=== PATIENT | male | born 1990 | race Caucasian/White ===

== ENCOUNTER 2020-03-13 21:48 | Emergency (ER) | payer MEDICAID, SELFPAY ==
[2020-03-13 21:50] VITALS: PULSE 83; RESP 16; TEMP 36.9; O2SAT 97; BMI 30.4
--- NOTE | 2020-03-13 22:10 | ED.VIS.GEN ---
History of Present Illness Chief Complaint: Abd Pain Informant: Patient Onset: Days - 3 days Context: Gradual Onset Current Severity: Mild Maximum Severity: Moderate Narrative: Patient presents with 3 days of nausea and vomiting with abdominal pain. He points across his lower abdomen and states that shoots up into the epigastrium region. He does report having some blood in his vomitus recently. He states last evening after vomiting he felt very warm, but is unsure if he truly had a fever. Patient has had prior appendectomy. - Past Medical History (1) Anxiety Status: Chronic Past Medical History - Allergies and Home Meds Allergies/Adverse Reactions: Allergies cephalexin [From Keflex] Allergy (Verified 03/13/20 21:55) Anaphylaxis Penicillins Allergy (Verified 03/13/20 21:55) Anaphylaxis Primary Care Physician: [facility] Doctor,Out of [NON-STAFF] - Surgical History: appendectomy Smoking Status: Current some day smoker Review of Systems General: Denies: Chills, Fever Eyes: Denies: Visual changes - bilaterally ENT: Denies: Bilateral ear pain Cardiovascular: Denies: Chest pain Respiratory: Denies: Dyspnea, Cough Gastrointestinal: Reports: Abdominal pain, Nausea, Vomiting. Denies: Diarrhea Genitourinary: Denies: Dysuria Musculoskeletal: Denies: Swelling, Extremity Pain Skin: Denies: Rash Neurological: Denies: Headache Hematologic: Denies: Easy bruising, Easy bleeding Allergy: Denies: Uticaria Physical Exam Vital Signs/Narrative: Vital Signs Temp Pulse Resp Pulse Ox 03/13/20 21:50 98.5 F 83 16 97 Inital Vital Signs reviewed: Yes General: Well nourished, Well developed Head: Normocephalic ENT: Moist mucous membranes Neck: Supple Cardiovascular: Regular rate, Regular rhythm Respiratory: No distress, CTA bilaterally Abdomen: Soft, Tender - Mild epigastric tenderness., Hypoactive bowel sounds. Negative for: Guarding, Rebound tenderness Extremities: Nontender Skin: Normal color Neurological: Alert, Oriented x3 Psychological: Normal affect Diagnostic/Tx/Re-eval Laboratory Results 03/13/20 03/13/20 03/13/20 21:55 21:55 21:55 WBC 7.8 RBC 4.42 L Hgb 13.6 Hct 38.9 L MCV 88.0 MCH 30.8 MCHC 35.0 RDW Std Deviation 39.2 RDW Coeff of Lyubov 12.0 Plt Count 191 MPV 11.1 Immature Gran % (Auto) 0.100 Neut % (Auto) 64.1 Lymph % (Auto) 26.1 Gilliam % (Auto) 9.1 Eos % (Auto) 0.5 Baso % (Auto) 0.1 Absolute Neuts (auto) 5.0 Absolute Lymphs (auto) 2.03 Nucleated RBC % 0 PT 12.3 INR 1.0 APTT 25.6 Sodium 139 Potassium 3.0 L Chloride 103 Carbon Dioxide 25.0 Anion Gap 11 BUN 11 Creatinine 1.09 Estim Creat Clear Calc 101.39 Est GFR (MDRD) Af Amer 101 Est GFR (MDRD) Non-Af 83 BUN/Creatinine Ratio 10.1 Glucose 108 H Calcium 8.6 Total Bilirubin 0.40 Direct Bilirubin < 0.05 AST 22 ALT 30 Alkaline Phosphatase 49 Total Protein 7.7 Albumin 3.8 Globulin 3.9 Lipase 175 - Medical Decision Making Patient was given IV fluids, Zofran, Bentyl, and Protonix. On repeat evaluation he is resting comfortably. He states he was seen for similar complaints at [facility] and they thought he may have an ulcer. He has not been taking antacids or followed up for EGD. He will be given prescriptions for Zofran, Prilosec, and Bentyl. His potassium tonight is low at 3.0. This will be replaced orally and prescription for additional replacement at home will also be provided. He will be given referral to surgery for follow-up and possible EGD. ED Disposition - Plan for ED Patient: Disposition: Home or Assisted Living Diagnosis: Vomiting, Gastritis Instructions: ED Vomiting (Adult), ED PEPTIC ULCER vs GASTRITIS Prescriptions: Dicyclomine HCl [Bentyl] 20 mg PO TIDAC #20 capsule Potassium Chloride [K-Tab ER] 40 meq PO DAILY #10 tablet.er Omeprazole [Prilosec] 20 mg PO DAILY #30 capsule Ondansetron [Zofran Odt] 4 mg PO Q8H PRN PRN #20 tablet PRN Reason: Nausea Referrals: Minh Mccray MD [STAFF PHYSICIAN] - 10-14 Days if not better
[2020-03-13] MEDS: Dicyclomine 20 MG/2 ML Vial IM (22:13)
[2020-03-13] MEDS: Ondansetron 4 MG/2 ML Vial IV (22:13)
[2020-03-13] MEDS: 0.9% Normal Saline 1,000 ML 1000 ML IV (22:13)
[2020-03-13 22:18] LABS: Absolute Lymphocyte Count 2.03 X10^3/uL (0.83-4.51); Basophil# 0.01 X10^3/uL; Basophil% 0.1 % (0-1); Eosinophil# 0.04 X10^3/uL; Eosinophils% 0.5 % (0-5); Hematocrit 38.9 % (40-54); Hemoglobin 13.6 g/dL (13.0-16.5); Lymphocyte # 2.03 X10^3/ul (4.0); Lymphocyte % 26.1 % (19-41); Mean Corpuscular Hgb 30.8 pg (27.0-32.0); Mean Platelet Vol. 11.1 fl (6.2-12.0); Monocyte# 0.71 X10^3/uL; Monocyte% 9.1 % (0-10); NRBC Flagged by Analyzer 0 % (0-5); Neutrophil # 4.97 X10^3/uL (2.7-7.7); Neutrophil % 64.1 % (47-70); Platelet Count 191 K/mm3 (150-450); RBC Distribution Width SD 39.2 fl (35.1-43.9); Red Blood Count 4.42 M/mm3 (4.6-6.2); White Blood Count 7.8 K/mm3 (4.4-11.0)
[2020-03-13 22:24] LABS: Prothrombin Time (Protime)PT. 12.3 SECONDS (11.7-14.9)
[2020-03-13 22:25] LABS: Partial Thromboplast Time 25.6 Seconds (24.1-36.2)
[2020-03-13 22:42] LABS: AST(SGOT) 22 U/L (15-37); Alanine Aminotransfer ALT/SGPT 30 U/L (16-61); Albumin, Serum 3.8 g/dL (3.2-5.0); Alkaline Phosphatase 49 U/L (45-117); Anion Gap 11 (5-15); BUN 11 mg/dL (7-18); BUN/Creat Ratio 10.1 RATIO (10-20); Bilirubin, Direct < 0.05 mg/dL (0.00-0.30); Calcium,Total 8.6 mg/dL (8.5-10.1); Chloride 103 mmol/L (98-107); Creatinine, Serum 1.09 mg/dL (0.70-1.30); EST Glomerular Filtration Rate 83 mL/min (>60); Est Glom Filt Rate - Afr Amer 101 mL/min (>60); Estimated Creatinine Clearance 101.39 ml/min; Globulin 3.9 g/dL (2.2-4.2); Glucose 108 mg/dL (74-106); Lipase 175 U/L (73-393); Protein, Total 7.7 g/dL (6.4-8.2); Sodium Level 139 mmol/L (136-145)
[2020-03-13 23:26] VITALS: BP 116/70; PULSE 71; RESP 16; O2SAT 99
== END 2020-03-13 23:26 | disposition home or self-care (01) ==
PROVIDERS: Emergency Provider Emergency Medicine
DX: K29.70 Gastritis, unspecified, without bleeding (principal); F41.9 Anxiety disorder, unspecified; Z79.899 Other long term (current) drug therapy; F17.200 Nicotine dependence, unspecified, uncomplicated
CPT/HCPCS: 80048; 80076; 83690; 85025; 85610; 85730; 96361; 96365; 96372; 96374; 99285; A4216; J2405

== ENCOUNTER 2020-03-14 23:21 | Emergency (ER) | payer MEDICAID, SELFPAY ==
[2020-03-13 21:50] VITALS: BMI 30.4
[2020-03-14 23:22] VITALS: BP 107/66; PULSE 85; RESP 16; TEMP 36.9; O2SAT 100; BMI 28.0
[2020-03-15] MEDS: Acetaminophen 500 MG Tablet 1000 MG PO (00:07)
--- NOTE | 2020-03-15 00:10 | ED.DCSUM_ITS ---
- ER Visit Summary Date of Service: 03/15/20 Chief Complaint: Left leg pain History of Present Illness: The patient is a 29 M who presents with left leg pain that began today. Patient states it is gradually gotten worse throughout the day today. Patient was seen here yesterday was given an injection of Bentyl in his left thigh. Patient states his pain is burning. Patient states it is worse with any movement. Patient states nothing seems to help it. Patient states she is having difficulty walking due to the pain. Patient admits to some tingling in his left foot. Patient also admits to a cough but denies any fevers or chills. Physical Examination: Vital signs are stable. Patient is afebrile. Patient is in no acute distress. Oral mucosa is pink and moist. Neck is supple. Trachea is midline. There is no JVD. Heart was regular rate and rhythm. Lungs are clear and equal bilaterally. Abdomen is soft. Bowel sounds are normal. There is no tenderness. Cranial nerves II through XII are intact. There are no focal motor or sensory deficits. Patient was moving his foot while I was obtaining his history. However when I asked him to lift his toes he stated he could not. Patient did not have any sensory deficits. Skin is warm dry. There is some very mild erythema around the injection site. There is no induration or warmth. There is tenderness over this area. Test Results: CBC and basic metabolic profile were obtained. Potassium was slightly low at 3.3. The remaining labs were within normal limits. Emergency Department Course and Treatment: Patient was given a dose of Tylenol here. Patient was also given a dose of Bactrim and potassium. Patient was given a prescription for Bactrim to cover for possible early cellulitis of his left thigh. Patient was instructed to continue Tylenol as needed for pain. Patient was instructed to follow-up with his primary care physician in 5 to 7 days. Patient understood and was agreeable with the plan. All questions were answered. Disposition: Discharge home Impression: 1. Left thigh pain 2. Possible early cellulitis This note was generated with [employer] Media[employer] software. It may contain incorrect words, spelling, and punctuation that were not noted in review of the chart prior to signing ED Disposition - Plan for ED Patient: Disposition: Home or Assisted Living Diagnosis: Pain of left lateral upper thigh, Cellulitis of left thigh Instructions: ED Cellulitis Prescriptions: Virginie/Tmp Ds [Bactrim Ds] 1 tab PO BID #14 tab Prescription Printed Referrals: Care Physician,No Primary [Primary Care Provider] - 3-5 Days
[2020-03-15 00:24] LABS: Absolute Lymphocyte Count 2.11 X10^3/uL (0.83-4.51); Absolute Neutrophil Count 3.5 X10^3/uL (2.0-7.7); Basophil# 0.03 X10^3/uL; Basophil% 0.5 % (0-1); Eosinophil# 0.13 X10^3/uL; Hematocrit 36.5 % (40-54); Hemoglobin 12.4 g/dL (13.0-16.5); Lymphocyte # 2.11 X10^3/ul (4.0); Lymphocyte % 32.8 % (19-41); Mean Corpuscular Hgb 30.1 pg (27.0-32.0); Mean Corpuscular Volume 88.6 fL (80-94); Monocyte# 0.65 X10^3/uL; Monocyte% 10.1 % (0-10); NRBC Flagged by Analyzer 0 % (0-5); Neutrophil # 3.49 X10^3/uL (2.7-7.7); Neutrophil % 54.3 % (47-70); Platelet Count 164 K/mm3 (150-450); RBC Distribution Width CV 12.1 % (11.6-14.6); RBC Distribution Width SD 39.7 fl (35.1-43.9); Red Blood Count 4.12 M/mm3 (4.6-6.2); White Blood Count 6.4 K/mm3 (4.4-11.0)
[2020-03-15 00:33] LABS: Anion Gap 6 (5-15); BUN 8 mg/dL (7-18); BUN/Creat Ratio 7.2 RATIO (10-20); Calcium,Total 7.9 mg/dL (8.5-10.1); Chloride 109 mmol/L (98-107); Creatinine, Serum 1.11 mg/dL (0.70-1.30); EST Glomerular Filtration Rate 82 mL/min (>60); Est Glom Filt Rate - Afr Amer 99 mL/min (>60); Estimated Creatinine Clearance 105.84 ml/min; Glucose 108 mg/dL (74-106); Potassium 3.3 mmol/L (3.5-5.1); Sodium Level 141 mmol/L (136-145)
[2020-03-15] MEDS: Smz/Tmp Ds Tablet 1 TABLET PO (00:57)
[2020-03-15 00:58] VITALS: BP 103/73; PULSE 81; RESP 15; O2SAT 100
== END 2020-03-15 01:41 | disposition home or self-care (01) ==
PROVIDERS: Emergency Provider Emergency Medicine
DX: L03.116 Cellulitis of left lower limb (principal); R05 Cough; F41.9 Anxiety disorder, unspecified; Z79.899 Other long term (current) drug therapy; Z72.0 Tobacco use
CPT/HCPCS: 80048; 85025; 99285; A4216

== ENCOUNTER 2020-04-15 22:32 | Emergency (ER) | payer OTHER, SELFPAY ==
[2020-04-15 22:33] VITALS: BP 112/64; PULSE 69; RESP 16; TEMP 36.6; O2SAT 98; BMI 27.8
--- NOTE | 2020-04-15 23:30 | ED.DCSUM_ITS ---
- ER Visit Summary Date of Service: 04/15/20 Chief Complaint: Right shoulder injury History of Present Illness: The patient is a 29 M who presents with right shoulder injury that occurred today. Patient states he was setting a truss when it fell. Patient states it fell onto him and pushed him to the ground. Patient states he landed on his right shoulder. Patient states that he trusted hit him in the head and he had a brief loss of consciousness. Patient admits to some intermittent paresthesias in his right arm. Patient thinks it was due to the way he was sitting. Patient denies any weakness. Patient states the pain is worse with any movement. Physical Examination: Vital signs are stable. Patient is afebrile. Patient is in no acute distress. Cranial nerves II through XII are intact. Strength is 5/5 bilateral in the upper and lower extremities. There are no sensory deficits noted. There is tenderness over the right shoulder and distal clavicle. Range of motion was limited in all motions of the right shoulder secondary to pain. There is no obvious deformity noted. There is no tenderness over the upper chest. Test Results: X-rays of the right shoulder were obtained. There are 2 views. On my interpretation, there is no acute fracture or dislocation. There is no soft tissue swelling. Radiologist also interpreted the x-rays and agrees. Emergency Department Course and Treatment: Patient was instructed to use ice to the area. Patient was instructed to use ibuprofen as needed for pain. Patient was instructed to follow-up with his primary care physician in 5 to 7 days. Patient was instructed to do range of motion exercises. Patient understood and was agreeable with the plan. All questions were answered. Disposition: Discharge home Impression: Right shoulder sprain This note was generated with Exch[employer] dictation software. It may contain incorrect words, spelling, and punctuation that were not noted in review of the chart prior to signing ED Disposition - Plan for ED Patient: Disposition: Home or Assisted Living Diagnosis: Sprain of right shoulder Instructions: ED Shoulder Sprain Referrals: James Haas MD [STAFF PHYSICIAN] - 5-7 Days
--- NOTE | 2020-04-15 23:45 | RAD_ITS ---
STUDY: X-RAY - RIGHT SHOULDER REASON FOR EXAM: Male, 29 years old. PT ARRIVES TO ED WITH PAIN IN RIGHT SHOULDER RELATED TO A TRUSS FALLING ON HIM AT WORK TECHNIQUE: 2 view(s) of the shoulder. COMPARISON: None. FINDINGS: Normal glenohumeral articulation. Normal acromioclavicular joint. Normal acromion. Normal humeral head and visualized proximal humerus. Subcutaneous infiltration along the distal clavicle and acromion on. There is no radiopaque foreign body. Normal visualized pulmonary apex. RAD/Shoulder min 2 Views IMPRESSION: Soft tissue injury. There is no acute displaced fracture or dislocation. Electronically Signed: Dari Deng MD at 0:13 EST , Service support ,
--- NOTE | 2020-04-15 23:48 | ED.RN ---
pt asked for phone number to supervisor assembly room to inquire about urine drug screen. individual was called on patient behalf. individual stated i know nothing about it. pt asked if he had another number call and stated no. drug screen held at this time. john javed rn
[2020-04-16 00:27] VITALS: PULSE 76; RESP 16; O2SAT 98
== END 2020-04-16 00:27 | disposition home or self-care (01) ==
PROVIDERS: Emergency Provider Emergency Medicine
DX: S43.401A Unspecified sprain of right shoulder joint, initial encounter (principal); W20.8XXA Other cause of strike by thrown, projected or falling object, initial encounter; Y93.9 Activity, unspecified; Y92.9 Unspecified place or not applicable; F41.9 Anxiety disorder, unspecified; Z79.899 Other long term (current) drug therapy
CPT/HCPCS: 73030; 99283

== ENCOUNTER 2020-06-08 17:39 | Emergency (ER) | payer OTHER, SELFPAY ==
[2020-06-08 17:40] VITALS: BP 147/89; PULSE 100; RESP 19; TEMP 36.6; O2SAT 100; BMI 27.0
--- NOTE | 2020-06-08 18:06 | US_ITS ---
STUDY: ABDOMINAL ULTRASOUND - RIGHT UPPER QUADRANT REASON FOR VISIT: Male, 30 years old PAIN-EPIGASTRIC TECHNIQUE: Ultrasound evaluation of the right upper quadrant was performed with real-time and static bailey-scale imaging. TECHNICAL QUALITY: Adequate. COMPARISON: None. FINDINGS: Liver: The liver measures 15.6 cm. There is normal echogenicity of the liver. The bile ducts are within normal limits. There is hepatic color flow. The direction of portal flow is hepatopetal. There is no demonstrated mass lesion. Gallbladder: Normal distended gallbladder. The gallbladder wall measures 2 mm. There is a negative sonographic Lopez''s sign. There is no pericholecystic fluid. There are no gallstones. Common Bile Duct (C.B.D.): The common bile duct measures 2 mm. Pancreas: Normal size of the head, body and tail of the pancreas. There is normal echogenicity of the pancreas. There is no demonstrated pancreatic mass or cyst. Right Kidney: Normal size of the right kidney. The right kidney measures 10.6 cm. Normal renal cortex. The right cortex measures 1.7 cm. There is no demonstrated renal mass or cyst. There is no right hydronephrosis. US/Gallbladder IMPRESSION: Normal right upper quadrant ultrasound examination. Electronically Signed: Adam Dominique MD at 19:07 EDT , Service support ,
--- NOTE | 2020-06-08 18:07 | EKG12_ITS ---
Test Reason : CP Blood Pressure : / mmHG Vent. Rate : 088 BPM Atrial Rate : 088 BPM P-R Int : 170 ms QRS Dur : 100 ms QT Int : 382 ms P-R-T Axes : 031 027 035 degrees QTc Int : 462 ms Normal sinus rhythm Normal ECG Confirmed by TRUNG HUYNH, MADAN ([id number]), newspaper copy editor JAGUAR SCHWARZ ([id number]) on 06/09/2020 1:55:22 PM Referred By: BB Confirmed By:MADAN NINO MD
--- NOTE | 2020-06-08 18:13 | ED.DCSUM_ITS ---
History of Present Illness Chief Complaint: Abd Pain Informant: Patient - Abdominal Pain/Flank Pain Onset: Weeks Context: Sudden Onset - Chest after swallowing most foods and drinks except water which does not bother him much Timing: Intermittent, Lasts - 5 or 6 minutes before it dissipates/resolves Quality: Dull Location: Epigastric Current Severity: Gone Maximum Severity: Severe Worsened by: Food Relieved by: Nothing - Has not tried any medications - Nausea/Vomiting/Emesis GI Symptom: Negative for: Nausea, Vomiting - Diarrhea/Melena/Hematochezia GI Symptom: Negative for: Diarrhea, Melena, Hematochezia Associated Symptoms: Negative for: Dysuria, Frequency, Hematuria, Urgency Narrative: Patient states he has been having this abdominal pain that is fairly intense right after he eats, it is midepigastric and radiates out to both sides maybe a little to his back before it resolves after 5 or 6 minutes. It is recurrent, after eating anything including just crackers. With drinking soda like Coca- Cola, it is also intense. With drinking water he has very mild discomfort only. No nausea or vomiting with any of this. He felt hot with it and uncomfortable but no definite fevers or chills when he is not having the pain. No melena or bright red blood per rectum. States he was told by a doctor he may have a stomach ulcer sometime around 6 months ago when he was having some minor hematemesis and was placed on an unknown medication, and he now is on once daily Pepcid since then. He also takes medications for anxiety. He had an append ectomy followed by laparoscopies because he thinks it ruptured and he needed several surgeries as a result. He does not think he had any other parts removed during the surgeries, and they were not recent. He is otherwise healthy. - Past Medical History (1) Anxiety Status: Chronic Past Medical History - Allergies and Home Meds Allergies/Adverse Reactions: Allergies cephalexin [From Keflex] Allergy (Verified 06/08/20 17:40) Anaphylaxis Penicillins Allergy (Verified 06/08/20 17:40) Anaphylaxis Primary Care Physician: Care Physician,No Primary [Primary Care Provider] - Surgical History: appendectomy Smoking Status: Former smoker Alcohol: None Review of Systems General: Denies: Chills, Fever, Sweats Eyes: Denies: Visual changes - bilaterally, Diplopia ENT: Denies: Rhinorrhea, Sore throat Cardiovascular: Denies: Chest pain, Palpitations Respiratory: Denies: Dyspnea, Cough, Dyspnea on exertion Gastrointestinal: Reports: Abdominal pain. Denies: Nausea, Vomiting, Diarrhea, Melena, Hematochezia Genitourinary: Denies: Dysuria, Hematuria, Frequency Musculoskeletal: Denies: Back pain, Extremity Pain Skin: Denies: Rash, Wounds Neurological: Denies: Headache, Weakness, Numbness Physical Exam Vital Signs/Narrative: Vital Signs Temp Pulse Resp BP Pulse Ox 06/08/20 17:40 97.9 F 100 19 H 147/89 H 100 Inital Vital Signs reviewed: Yes General: Well nourished, Well developed, No Acute Distress Head: Normocephalic, Atraumatic Eyes: Perrl, EOMI ENT: Moist mucous membranes, No rhinorrhea Neck: Supple, Nontender Cardiovascular: Regular rate, Regular rhythm, No murmurs Respiratory: No distress, CTA bilaterally, Chest nontender Abdomen: Soft, Nondistended, Normal bowel sounds, Tender - Mild, epigastric only. Negative for: Guarding, Rebound tenderness, Lopez's sign Back: Nontender, Normal Inspection. Negative for: CVA tenderness Extremities: Nontender, No edema. Negative for: Calf Tenderness Skin: Normal color, No rash, No Trauma Neurological: Alert, Oriented x3, Cranial nerves II-XII grossly intact, Normal Strength, Normal Sensation, Normal Gait Psychological: Normal affect, Normal Mood Diagnostic/Tx/Re-eval Impressions Gallbladder Ultrasound 06/08/20 18:06 IMPRESSION: Normal right upper quadrant ultrasound examination. Electronically Signed: Adam Dominique MD at 19:07 EDT , Service support , 06/08/20 18:06 Gallbladder [US] Stat Laboratory Results 06/08/20 06/08/20 06/08/20 18:10 18:10 19:00 WBC 4.8 RBC 3.99 L Hgb 11.7 L Hct 35.4 L MCV 88.7 MCH 29.3 MCHC 33.1 RDW Std Deviation 42.3 RDW Coeff of Lyubov 13.1 Plt Count 246 MPV 9.9 Immature Gran % (Auto) 0.400 Neut % (Auto) 54.9 Lymph % (Auto) 33.1 [place] % (Auto) 10.8 H Eos % (Auto) 0.4 Baso % (Auto) 0.4 Absolute Neuts (auto) 2.6 Absolute Lymphs (auto) 1.59 Nucleated RBC % 0 Sodium 137 Potassium 3.3 L Chloride 102 Carbon Dioxide 27.0 Anion Gap 8 BUN 9 Creatinine 1.03 Estim Creat Clear Calc 113.01 Est GFR (MDRD) Af Amer 108 Est GFR (MDRD) Non-Af 89 BUN/Creatinine Ratio 8.7 L Glucose 91 Calcium 9.3 Total Bilirubin 0.50 AST 30 ALT 27 Alkaline Phosphatase 38 L Total Protein 7.9 Albumin 3.8 Globulin 4.1 Albumin/Globulin Ratio 0.9 Lipase 165 Urine Color Yellow Urine Clarity Clear Urine pH 5.0 Ur Specific [place] 1.025 Urine Protein 15 H Urine Glucose (UA) Normal Urine Ketones 50 H Urine Occult Blood Negative Urine Nitrite Negative Urine Bilirubin Negative Urine Urobilinogen 1 H Ur Leukocyte Esterase Negative Urine RBC 0 SEEN Urine WBC 0 SEEN Ur Squamous Epith Cells 0 SEEN Urine Bacteria RARE Urine Mucus 2+ - Rhythm Strip Rhythm Strip: Sinus Rhythm Rate: 88 Ectopy: None - EKG Initial EKG Interpretation: Sinus Rhythm, No Acute Injury Pattern - normal EKG - Medical Decision Making Other than a mildly low potassium, his work-up is unremarkable. This is all consistent with acute gastritis. He may need further work-up of his symptoms do not resolve with simple medication/treatment. At this point I would recommend switching the Pepcid for a PPI and adding Carafate for a week, sticking with a bland diet for now, and following up. He is comfortable with that plan. Patient states he does not have a doctor to follow-up with. However, he lives in [place], [place] which is not near here. I recommend that he find a doctor close to him to follow-up with. ED Disposition - Plan for ED Patient: Disposition: Home or Assisted Living Diagnosis: Epigastric pain Instructions: ED PEPTIC ULCER vs GASTRITIS, ED Diet, [place] (Adult) Prescriptions: Sucralfate [Carafate] 1 gm PO 4X/DAY #28 tab Prescription Printed Pantoprazole Sodium [Protonix] 40 mg PO DAILY #30 tab Prescription Printed Referrals: Doctor,Your [STAFF PHYSICIAN] - 1 Week if not improving Additional Instructions: STOP taking your pepcid/famotidine and take the new prescription instead.
[2020-06-08 18:18] LABS: Absolute Lymphocyte Count 1.59 X10^3/uL (0.83-4.51); Absolute Neutrophil Count 2.6 X10^3/uL (2.0-7.7); Basophil# 0.02 X10^3/uL; Basophil% 0.4 % (0-1); Eosinophil# 0.02 X10^3/uL; Eosinophils% 0.4 % (0-5); Hematocrit 35.4 % (40-54); Hemoglobin 11.7 g/dL (13.0-16.5); Lymphocyte # 1.59 X10^3/ul (4.0); Lymphocyte % 33.1 % (19-41); Mean Corp Hgb Conc 33.1 g/dL (32-36); Mean Corpuscular Hgb 29.3 pg (27.0-32.0); Mean Corpuscular Volume 88.7 fL (80-94); Mean Platelet Vol. 9.9 fl (6.2-12.0); Monocyte# 0.52 X10^3/uL; Monocyte% 10.8 % (0-10); NRBC Flagged by Analyzer 0 % (0-5); Neutrophil # 2.63 X10^3/uL (2.7-7.7); Neutrophil % 54.9 % (47-70); Platelet Count 246 K/mm3 (150-450); RBC Distribution Width CV 13.1 % (11.6-14.6); RBC Distribution Width SD 42.3 fl (35.1-43.9); Red Blood Count 3.99 M/mm3 (4.6-6.2); White Blood Count 4.8 K/mm3 (4.4-11.0)
[2020-06-08 18:34] LABS: ALB/GLOB Ratio 0.9 RATIO (0.9-2.4); AST(SGOT) 30 U/L (15-37); Alanine Aminotransfer ALT/SGPT 27 U/L (16-61); Albumin, Serum 3.8 g/dL (3.2-5.0); Alkaline Phosphatase 38 U/L (45-117); Anion Gap 8 (5-15); BUN 9 mg/dL (7-18); BUN/Creat Ratio 8.7 RATIO (10-20); Calcium,Total 9.3 mg/dL (8.5-10.1); Chloride 102 mmol/L (98-107); Creatinine, Serum 1.03 mg/dL (0.70-1.30); EST Glomerular Filtration Rate 89 mL/min (>60); Est Glom Filt Rate - Afr Amer 108 mL/min (>60); Estimated Creatinine Clearance 113.01 ml/min; Globulin 4.1 g/dL (2.2-4.2); Glucose 91 mg/dL (74-106); Lipase 165 U/L (73-393); Potassium 3.3 mmol/L (3.5-5.1); Protein, Total 7.9 g/dL (6.4-8.2); Sodium Level 137 mmol/L (136-145)
[2020-06-08 19:02] LABS: Red Blood Cells-Urine 0 SEEN /hpf (0-5); Squamous Epithelial Cells - UA 0 SEEN /hpf (0-5); White Blood Cells 0 SEEN /hpf (0-5)
[2020-06-08 19:03] LABS: Color, Urine Yellow (Yellow); Glucose, Dipstick Normal (Normal); Ketone-Dipstick 50 mg/dl (Negative); Leukocyte Esterase-Dipstick Negative /ul (Negative); Nitrite-Dipstick Negative (Negative); Occult Blood-Urine Negative /ul (Negative); Protein-Dipstick 15 mg/dl (Negative); Specific Gravity, Urine 1.025 (1.002-1.030); Urine Bilirubin Dipstick Negative (Negative); Urine Clarity Clear (Clear); Urine Urobilinogen 1 mg/dl (Normal)
[2020-06-08 19:11] LABS: Bacteria RARE /hpf (None Seen); Mucous, Urine 2+ /hpf (<or=2+)
[2020-06-08 20:11] VITALS: BP 133/81; PULSE 85; RESP 16; O2SAT 98
[2020-06-08] MEDS: Sucralfate 1 GM Tablet PO (20:11)
[2020-06-08] MEDS: Pantoprazole Sodium 40 MG Tablet PO (20:12)
== END 2020-06-08 20:14 | disposition home or self-care (01) ==
PROVIDERS: Emergency Provider Emergency Medicine
DX: R10.13 Epigastric pain (principal); F41.9 Anxiety disorder, unspecified; Z79.899 Other long term (current) drug therapy; Z87.891 Personal history of nicotine dependence
CPT/HCPCS: 76705; 80053; 81001; 83690; 85025; 93005; 99284; A4216